=== PATIENT | male | born 2000 | race African-American/Black ===

== ENCOUNTER 2022-01-14 20:35 | Emergency (ER) | payer OTHER ==
[2022-01-14] MEDS ORDERED: NARCAN4 MG IN (21:06)
== END 2022-01-14 22:20 | disposition home or self-care (01) ==
LOC: FER 20:35
DX: T40.2X1A Poisoning by other opioids, accidental (unintentional), initial encounter (principal); F17.200 Nicotine dependence, unspecified, uncomplicated
CPT/HCPCS: 99284